=== PATIENT | male | born 1980 | race Caucasian/White ===

== ENCOUNTER 2016-11-11 16:57 | Emergency (ER) | payer OTHER ==
[~2016-11-11] VITALS: Ht 195.6 cm; Wt 127.0 kg
[2016-11-11 17:03] VITALS: BP 130/74
--- NOTE | 2016-11-11 17:39 | ED UPPER/LOWER EXTREMITY COMPL ---
History of Present Illness General Chief Complaint: Lower Extremity Injury Stated Complaint: LEFT KNEE INJURY AT WORK Source: patient Exam Limitations: no limitations Vital Signs & Intake/Output Vital Signs & Intake/Output Vital Signs Date Time Temp Pulse Resp B/P B/P Pulse O2 O2 Flow FiO2 Mean Ox Delivery Rate 11/11 1703 97.7 65 16 130/74 96 Room Air Allergies Coded Allergies: MDX - PCN (penicillin) (PCN (PENICILLIN)) (HIVES 08/03/11) Triage Note: PT STATES HE SLAMMED HIS LEFT KNEE INTO A DOOR AT WORK TODAY ABOUT 1458 Triage Nurses Notes Reviewed? yes Onset: Abrupt Duration: constant Timing: single episode today Severity: moderate Severity Numbers: 5 HPI: Patient is a 36-year-old male with an unremarkable past medical history presents to emergency room stating that while at work today he accidentally opened a door and struck the anterior aspect of his knee to the door resulting acute onset of pain. Patient states that incline and declined ambulation makes worse. No medications given prior to arrival. Patient has history of patellar partial tendon tear however no surgical intervention has been performed. 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 none Surgical History Surgical History: non-contributory Psychosocial History What is your primary language [place]er Tobacco Use: Never used ETOH Use: denies use Illicit Drug Use: denies illicit drug use Family History Hx Contributory? No Review of Systems Review of Systems Constitutional: Reports: no symptoms. EENTM: Reports: no symptoms. Respiratory: Reports: no symptoms. Cardiovascular: Reports: no symptoms. Gastrointestinal/Abdominal: Reports: no symptoms. Genitourinary: Reports: no symptoms. Musculoskeletal: Reports: see HPI, joint pain, joint swelling. Skin: Reports: no symptoms. Neurological/Psychological: Reports: no symptoms. Hematologic/Endocrine: Reports: no symptoms. Immunological: Reports: no symptoms. All Other Systems: Reviewed and Negative Physical Exam Physical Exam General Appearance: no apparent distress, alert, comfortable Neurologic/Tendon: normal sensation, normal motor functions, normal tendon functions, responds to pain, no evidence tendon injury Skin: intact, normal color, warm/dry Comments: Well-developed well-nourished no apparent distress. HEENT: Atraumatic, extraocular motion intact Neck: Supple, no lymphadenopathy Back: Nontender Respiratory: No respiratory distress Extremities: Left hip normal inspection nontender Left knee noted nontender inferior patella bony prominence Mild decreased active range of motion noted with flexion Negative valgus stress test negative varus stress test negative anterior drawer test negative posterior drawer test Neuro: Alert and oriented x3 Psych: Mood affect normal, normal memory normal judgment. Progress Differential Diagnosis: arterial insufficiency, compartment syndrome, contusion, dislocation, DVT, fracture, gout, septic arthritis, sprain, tendon injury Plan of Care: Current Medications Sig/Gwyn Start time Last Medication Dose Stop Time Status Admin Ibuprofen 600 MG ONCE ONE 11/11 1814 UNVr 11/11 (Motrin) 11/11 Patient had no acute findings on x-ray, patient's osseous abnormalities is most likely to remote history of partial tendon rupture Jean wrap was placed pre-and post-neurovascular was intact to left knee patient had normal steady gait on discharge (SARBJIT BARRON) Diagnostic Imaging: Viewed by Me: Radiology Read. Radiology Impression: no fracture Comments: PATIENT: KARY AGUILAR PRESENT AGE: 36 PATIENT ACCOUNT NO: [id number] : 82 LOCATION: [facility] ORDERING PHYSICIAN: BORIS MERIDA MD SERVICE DATE: 11/11/16 EXAM TYPE: RAD - XRY-KNEE COMPLETE LEFT EXAMINATION: XR KNEE, LEFT CLINICAL INFORMATION: Left knee pain. Evaluate for a fracture. COMPARISON: No relevant prior studies are available for comparison. TECHNIQUE: AP, bilateral oblique, and lateral views of the left knee were obtained. FINDINGS: No joint space narrowing. No marginal osteophytes. No osseous erosion. No acute fracture. 1.1 cm ossification as well as prominent enthesopathic spurring at the inferior aspect of the patella as well as a 1.7 cm ossification adjacent to the tibial tuberosity. These findings could represent chronic avulsive injuries. No significant joint effusion. 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 No acute fracture. Departure Departure Disposition: HOME OR SELF CARE Condition: Stable Clinical Impression Primary Impression: Contusion of left knee Referrals: MIGUEL A RODRIGUEZ,VIRGINIA ADAMS MD,JENNI Ly (PCP/Family) Additional Instructions: As discussed begin icing the area directly 20 minutes every 2 hours. Begin over -the-counter ibuprofen 3 tablets of 2 mg equaling 600 mg every 8 hours for pain. If symptoms worsen return to emergency room. If no better in one week follow- up with orthopedic DR. GRADY. Departure Forms: Customer Survey General Discharge Information
--- NOTE | 2016-11-11 18:12 | RADIOLOGY REPORT ---
EXAMINATION: XR KNEE, LEFT CLINICAL INFORMATION: Left knee pain. Evaluate for a fracture. COMPARISON: No relevant prior studies are available for comparison. TECHNIQUE: AP, bilateral oblique, and lateral views of the left knee were obtained. FINDINGS: No joint space narrowing. No marginal osteophytes. No osseous erosion. No acute fracture. 1.1 cm ossification as well as prominent enthesopathic spurring at the inferior aspect of the patella as well as a 1.7 cm ossification adjacent to the tibial tuberosity. These findings could represent chronic avulsive injuries. No significant joint effusion. 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 No acute fracture.
== END 2016-11-11 18:36 ==
LOC: ERH 16:57
DX: S80.02XA Contusion of left knee, initial encounter (principal); W22.8XXA Striking against or struck by other objects, initial encounter; Y92.9 Unspecified place or not applicable; Y93.9 Activity, unspecified
CPT/HCPCS: 73562-LT